=== PATIENT | female | born 1955 | race American Indian/Alaskan Native ===

== ENCOUNTER 2018-10-18 16:42 | Inpatient (IN) | payer OTHER ==
[2018-10-18 18:43] VITALS: BMI 34.3
[2018-10-18 20:36] VITALS: RESP 20
[2018-10-18] MEDS ORDERED: Bisacodyl 5mg EC Tab PO PRN (20:58)
[2018-10-18] MEDS ORDERED: guaiFENesin DM 100 mg-10 mg/5 ml UD PO PRN (20:58)
[2018-10-18] MEDS ORDERED: oxyCODONE 10 mg Immediate Release Tab PO PRN (21:13)
[2018-10-18] MEDS: oxyCODONE 10 mg Immediate Release Tab PO PRN (22:34)
[2018-10-18] MEDS: Ergocalciferol 50,000 Intl Units Cap PO SCH (22:46)
[2018-10-19] MEDS: Enoxaparin 40 mg Syringe SC SCH (09:04)
[2018-10-19] MEDS: Calcium-Vit D 250 mg-125 Units Tab UD PO SCH (09:04)
[2018-10-19] MEDS: oxyCODONE 10 mg Immediate Release Tab PO PRN (10:39)
--- NOTE | 2018-10-19 14:04 | CP.PCM.CON ---
History of Present Illness - History of Present Illness History of Present Illness: Dr Amezcua PMR consultation on Angel Byrne, born 1955 who has been admitted to [address] TCU following a left TKR at [facility]. X-ray revealed severe DJD. Post op stable. Pain is controlled 02/21. Only 1 BM in 6 days and she is usually very regular. Review of Systems - Constitutional Constitutional: absent: Anorexia, Chills, Daytime Sleepiness - EENT Eyes: Blurred Vision. absent: Change in Vision Ears: absent: Ear Discharge, Ear Pain Nose/Mouth/Throat: absent: Nasal Congestion, Nasal Discharge - Cardiovascular Cardiovascular: absent: Chest Pain, Chest Pain at Rest - Respiratory Respiratory: absent: Dyspnea, Hemoptysis - Gastrointestinal Gastrointestinal: Constipation - Integumentary Integumentary: absent: Bleeding Lesions - Neurological Neurological: absent: Abnormal Movements, Numbness, Radicular Pain, Tremor, Vertigo - Psychiatric Psychiatric: absent: Anxiety Past Patient History - Infectious Disease Hx of Infectious Diseases: None - Tetanus Immunizations Tetanus Immunization: Unknown - Past Medical History & Family History Past Medical History?: Yes - Past Social History Smoking Status: Light Smoker < 10 Cigarettes Daily Alcohol: None Drugs: Denies Home Situation {Lives}: Alone - CARDIAC Hx Cardiac Disorders: Yes Hx Hypertension: Yes - PULMONARY Hx Chronic Obstructive Pulmonary Disease (COPD): Yes - NEUROLOGICAL Hx Neurological Disorder: No - HEENT Hx HEENT Problems: No - RENAL Hx Chronic Kidney Disease: No - ENDOCRINE/METABOLIC Hx Endocrine Disorders: No - HEMATOLOGICAL/ONCOLOGICAL Hx Blood Disorders: Yes Hx Hepatitis C: Yes (January 2014, as per EMR, unknown to patient) - INTEGUMENTARY Hx Dermatological Problems: No - MUSCULOSKELETAL/RHEUMATOLOGICAL Hx Arthritis: Yes - GASTROINTESTINAL Hx Gastrointestinal Disorders: Yes Hx Bowel Surgery: Yes (POLYPECTOMY) - GENITOURINARY/GYNECOLOGICAL Hx Genitourinary Disorders: Yes Hx Reproductive Disorders: Yes Other/Comment: Uterine fibriods - PSYCHIATRIC Hx Substance Use: Yes (MARIJUANA LAST USE 2 DAYS AGO) - SURGICAL HISTORY Hx Surgeries: Yes Hx Arthroscopy: Yes (left knee) Hx Joint Replacement: Yes (AYO KNEE REPLACEMENT) Hx Orthopedic Surgery: Yes Other/Comment: Left knee arthroscopy . right knee torn cartilage . fibroids removed - ANESTHESIA Hx Anesthesia: Yes Hx Anesthesia Reactions: No Hx Malignant Hyperthermia: No Meds Allergies/Adverse Reactions: Allergies Allergy/AdvReac Type Severity Reaction Status Date / Time No Known Allergies Allergy Verified 10/18/18 16:44 - Medications Medications: Current Medications Acetaminophen (Tylenol 325mg Tab) 650 mg PO Q6 PRN PRN Reason: Fever >100.4 F Last Admin: 10/18/18 22:45 Dose: 650 mg Bisacodyl (Dulcolax) 10 mg PO HS PRN PRN Reason: Constipation Last Admin: 10/18/18 22:45 Dose: 10 mg Bisoprolol Fumarate (Zebeta) 5 mg PO DAILY [facility] Last Admin: 10/19/18 09:04 Dose: 5 mg Calcium/Vitamin D (Oscal-D 250 Mg-125 Units Tab) 1 tab PO DAILY [facility] Last Admin: 10/19/18 09:04 Dose: 1 tab Diazepam (Valium) 5 mg PO Q8 PRN PRN Reason: Muscle spasm Docusate Sodium (Colace) 100 mg PO BID [facility] Last Admin: 10/19/18 09:04 Dose: 100 mg Enoxaparin Sodium (Lovenox) 40 mg SC DAILY [facility]; Protocol Last Admin: 10/19/18 09:04 Dose: 40 mg Ergocalciferol (Drisdol 50,000 Intl Units Cap) 1 cap PO Q7D [facility] Last Admin: 10/18/18 22:46 Dose: 1 cap Guaifenesin/Dextromethorphan (Robitussin Dm) 5 ml PO Q4H PRN PRN Reason: Cough Hydrochlorothiazide (Microzide) 12.5 mg PO DAILY [facility] Last Admin: 10/19/18 09:04 Dose: 12.5 mg Lactulose (Enulose) 20 gm PO Q4 [facility] Ondansetron HCl (Zofran Tab) 4 mg PO Q6 PRN PRN Reason: Nausea/Vomiting Oxycodone HCl (Oxycodone Immediate Release Tab) 10 mg PO Q4H PRN PRN Reason: Pain, severe (8-10) Last Admin: 10/19/18 10:39 Dose: 10 mg Physical Exam - Constitutional Appears: Non-toxic, No Acute Distress - Head Exam Head Exam: ATRAUMATIC, NORMAL INSPECTION, NORMOCEPHALIC - Eye Exam Eye Exam: EOMI - ENT Exam ENT Exam: Mucous Membranes Moist - Respiratory Exam Respiratory Exam: NORMAL BREATHING PATTERN - Cardiovascular Exam Cardiovascular Exam: REGULAR RHYTHM - GI/Abdominal Exam GI & Abdominal Exam: Distended. absent: Firm - Extremities Exam Extremities exam: Negative for: full ROM (left knee immobilizer and wrap) - Neurological Exam Neurological exam: Alert, CN II-XII Intact, Oriented x3 - Psychiatric Exam Psychiatric exam: Normal Affect, Normal Mood - Skin Skin Exam: Warm Results - Vital Signs Recent Vital Signs: Last Vital Signs Temp 98.5 F 10/19/18 08:04 Pulse 73 10/19/18 10:30 Resp 20 10/19/18 08:04 BP 123/79 10/19/18 08:04 Pulse Ox 98 10/19/18 10:30 Assessment & Plan - Assessment and Plan (Free Text) Assessment: 63 year old female s/p left TKR PT/OT to continue to help increase functional independence Pain: controlled Vascular: no evidence of DVT on LMWH GI: + constipation. Will increase bowel regimen Patient continues to be an excellent TCU rehabilitation candidate and will have continued focused PT, OT and recreational therapy to help facilitate a safe and appropriate d/c plan
[2018-10-19] MEDS: oxyCODONE 5 mg Immediate Release Tab PO PRN (18:21)
[2018-10-20] MEDS: oxyCODONE 5 mg Immediate Release Tab PO PRN ×4 (00:27→20:52)
--- NOTE | 2018-10-20 01:24 | HP ---
HISTORY OF PRESENT ILLNESS: This is a 63-year-old female with history of hypertension, osteoarthritis, was admitted to Transitional Care Unit for deconditioning and physical therapy after having a left total knee replacement. The patient denied having chest pain, shortness of breath. The patient has been on DVT prophylaxis since she had the surgery. The patient was complaining of constipation. Other review of systems is negative. ALLERGIES: NO KNOWN ALLERGY. MEDICATIONS: Reviewed as per MAR and ordered. SOCIAL HISTORY: Denied history of smoking, EtOH or substance abuse. FAMILY HISTORY: Not contributory. PAST MEDICAL HISTORY: Hypertension, right knee surgery for torn ligament, osteoarthritis. PHYSICAL EXAMINATION: GENERAL: The patient is in bed, not in any cardiopulmonary distress. VITAL SIGNS: Blood pressure 155/62, temperature 98.4, respiratory rate 20 and pulse 81. HEENT: Pupils equal, reactive to light. Normal-appearing mucosa of the conjunctivae, oropharynx and nasal membrane mucosa. NECK: Supple. No JVD. No carotid bruit. No lymph node. No thyromegaly. CHEST AND LUNGS: Bilateral symmetrical expansion. Good air exchange. No rales, no rhonchi. CARDIOVASCULAR SYSTEM: PMI not localized. S1, S2. No additional sounds. ABDOMEN: Normoactive bowel sounds. No tenderness. No organomegaly. No masses. EXTREMITIES: No cyanosis, no clubbing, no edema. [employer]: Alert, awake, oriented x2. No neurological deficit could be appreciated. ASSESSMENT: Left total knee replacement, osteoarthritis, hypertension. PLAN: Resume the patient's home medications. DVT prophylaxis. We will give the patient lactulose every 4 hours until bowel movement. Physical therapy and occupational therapy. Radha Rios MD
[2018-10-20] MEDS: Enoxaparin 40 mg Syringe SC SCH (08:08)
[2018-10-20] MEDS: Calcium-Vit D 250 mg-125 Units Tab UD PO SCH (08:08)
[2018-10-20 09:28] LABS: BASO % 0.6 % (0.0-2.0); EOS # 0.2 K/uL (0.0-0.7); EOS % 2.2 % (0.0-4.0); HEMOGLOBIN 8.5 g/dL (12.0-16.0); LYMPH # 1.4 K/uL (1.0-4.3); LYMPH % 18.6 % (20.0-40.0); MEAN CELL VOLUME 98.7 fl (81.0-99.0); MEAN CORPUSCULAR HEMOGLOBIN 32.9 pg (27.0-31.0); MEAN CORPUSCULAR HGB CONC 33.4 g/dL (33.0-37.0); MEAN PLATELET VOLUME 8.8 fl (7.2-11.7); MONO # 1.2 K/uL (0.0-0.8); MONO % 14.9 % (0.0-10.0); NEUT # 4.9 K/uL (1.8-7.0); NEUT % 63.7 % (50.0-75.0); RBC 2.58 Mil/uL (3.80-5.20); RED CELL DISTRIBUTION WIDTH 14.5 % (11.5-14.5); WHITE BLOOD COUNT 7.7 K/uL (4.8-10.8)
[2018-10-20 09:32] LABS: ALB/GLOB RATIO 0.9 (1.0-2.1); ALBUMIN 3.2 g/dL (3.5-5.0); ALT/SGPT 22 U/L (9-52); AST/SGOT 28 U/L (14-36); BLOOD UREA NITROGEN 10 mg/dl (7-17); CALCIUM 8.6 mg/dL (8.4-10.2); GFR NON-AFRICAN AMERICAN > 60
--- NOTE | 2018-10-20 14:21 | CP.PCM.PN ---
Subjective - Date & Time of Evaluation Date of Evaluation: 10/20/18 Time of Evaluation: 14:20 - Subjective Subjective: Patient seen in the room had a BM happy and feels much better now pain is controlled minimal calf tenderness, able to move ankle well continue current care Objective - Vital Signs/Intake and Output Vital Signs (last 24 hours): Temp Pulse Resp BP Pulse Ox 98.9 F 78 20 147/75 97 10/20/18 08:06 10/20/18 09:15 10/20/18 08:06 10/20/18 09:15 10/20/18 09:15 - Medications Medications: Current Medications Acetaminophen (Tylenol 325mg Tab) 650 mg PO Q6 PRN PRN Reason: Fever >100.4 F Last Admin: 10/20/18 00:24 Dose: 650 mg Bisacodyl (Dulcolax) 10 mg PO HS PRN PRN Reason: Constipation Last Admin: 10/18/18 22:45 Dose: 10 mg Bisoprolol Fumarate (Zebeta) 5 mg PO DAILY [facility] Last Admin: 10/20/18 08:07 Dose: 5 mg Calcium/Vitamin D (Oscal-D 250 Mg-125 Units Tab) 1 tab PO DAILY [facility] Last Admin: 10/20/18 08:08 Dose: 1 tab Diazepam (Valium) 5 mg PO Q8 PRN PRN Reason: Muscle spasm Docusate Sodium (Colace) 100 mg PO BID [facility] Last Admin: 10/20/18 08:07 Dose: 100 mg Enoxaparin Sodium (Lovenox) 40 mg SC DAILY [facility]; Protocol Last Admin: 10/20/18 08:08 Dose: 40 mg Ergocalciferol (Drisdol 50,000 Intl Units Cap) 1 cap PO Q7D [facility] Last Admin: 10/18/18 22:46 Dose: 1 cap Guaifenesin/Dextromethorphan (Robitussin Dm) 5 ml PO Q4H PRN PRN Reason: Cough Hydrochlorothiazide (Microzide) 12.5 mg PO DAILY [facility] Last Admin: 10/20/18 08:08 Dose: 12.5 mg Ondansetron HCl (Zofran Tab) 4 mg PO Q6 PRN PRN Reason: Nausea/Vomiting Oxycodone HCl (Oxycodone Immediate Release Tab) 10 mg PO Q4H PRN PRN Reason: Pain, severe (8-10) Last Admin: 10/20/18 07:01 Dose: 10 mg - Labs Labs: 10/20/18 09:11 10/20/18 09:11
--- NOTE | 2018-10-20 15:08 | CP.PCM.PN ---
Subjective - Date & Time of Evaluation Date of Evaluation: 10/20/18 Time of Evaluation: 14:00 - Subjective Subjective: Patient states she is tired today. She says overall she is getting better, but she is very tired after physical therapy. Objective - Vital Signs/Intake and Output Vital Signs (last 24 hours): Temp Pulse Resp BP Pulse Ox 98.9 F 78 20 147/75 97 10/20/18 08:06 10/20/18 09:15 10/20/18 08:06 10/20/18 09:15 10/20/18 09:15 - Medications Medications: Current Medications Acetaminophen (Tylenol 325mg Tab) 650 mg PO Q6 PRN PRN Reason: Fever >100.4 F Last Admin: 10/20/18 00:24 Dose: 650 mg Bisacodyl (Dulcolax) 10 mg PO HS PRN PRN Reason: Constipation Last Admin: 10/18/18 22:45 Dose: 10 mg Bisoprolol Fumarate (Zebeta) 5 mg PO DAILY [facility] Last Admin: 10/20/18 08:07 Dose: 5 mg Calcium/Vitamin D (Oscal-D 250 Mg-125 Units Tab) 1 tab PO DAILY [facility] Last Admin: 10/20/18 08:08 Dose: 1 tab Diazepam (Valium) 5 mg PO Q8 PRN PRN Reason: Muscle spasm Docusate Sodium (Colace) 100 mg PO BID [facility] Last Admin: 10/20/18 08:07 Dose: 100 mg Enoxaparin Sodium (Lovenox) 40 mg SC DAILY [facility]; Protocol Last Admin: 10/20/18 08:08 Dose: 40 mg Ergocalciferol (Drisdol 50,000 Intl Units Cap) 1 cap PO Q7D [facility] Last Admin: 10/18/18 22:46 Dose: 1 cap Guaifenesin/Dextromethorphan (Robitussin Dm) 5 ml PO Q4H PRN PRN Reason: Cough Hydrochlorothiazide (Microzide) 12.5 mg PO DAILY [facility] Last Admin: 10/20/18 08:08 Dose: 12.5 mg Ondansetron HCl (Zofran Tab) 4 mg PO Q6 PRN PRN Reason: Nausea/Vomiting Oxycodone HCl (Oxycodone Immediate Release Tab) 10 mg PO Q4H PRN PRN Reason: Pain, severe (8-10) Last Admin: 10/20/18 07:01 Dose: 10 mg - Labs Labs: 10/20/18 09:11 10/20/18 09:11 - Extremities Exam Additional comments: left knee: moderate swelling and ecchymosis to left knee. Incision intact. Calves soft NT neg homans, +ROM ankle/toes, sensation intact +DP/PT pulses Assessment and Plan (1) Status post total left knee replacement Assessment & Plan: cont PT/OT cont VTE proph labs reviewed cont knee immob d/w Dr. sinha, agrees with above Status: Acute
[2018-10-20] MEDS ORDERED: Potassium Chloride 20 mEq ER Tab PO ONE (21:00)
[2018-10-21] MEDS: Calcium-Vit D 250 mg-125 Units Tab UD PO SCH (08:40)
[2018-10-21] MEDS: Enoxaparin 40 mg Syringe SC SCH (08:40)
[2018-10-21] MEDS: oxyCODONE 5 mg Immediate Release Tab PO PRN ×3 (08:41→21:20)
--- NOTE | 2018-10-22 04:15 | PN ---
DATE: 10/21/2018 DAILY PROGRESS NOTE SUBJECTIVE: The patient is seen today, 10/21/2018. She is not in any cardiopulmonary distress. The patient moves bowel. She has low-grade fever. She is encouraged to use the spirometry. PHYSICAL EXAMINATION: VITAL SIGNS: Blood pressure is 125/75, temperature 98.9, respiratory rate 20, and pulse 85. HEENT: Pupils equal and reactive to light. Normal-appearing mucosa of the conjunctivae, oropharynx, and nasal membrane mucosa. NECK: Supple. No JVD. No carotid bruits. No lymph node. No thyromegaly. CHEST AND LUNGS: Bilateral symmetrical expansion. Good air exchange. No rales. No rhonchi. CARDIOVASCULAR SYSTEM: PMI not localized. S1 and S2. No additional sounds. ABDOMEN: Normoactive bowel sounds. No tenderness. No organomegaly. No masses. EXTREMITIES: No cyanosis. No clubbing. No edema. CENTRAL NERVOUS SYSTEM: Alert, awake, and oriented x2. No neurological deficit could be appreciated. ASSESSMENT: 1. Left total knee replacement. 2. Hypertension. 3. Osteoarthritis. PLAN: Continue current medications and pain management as well as DVT prophylaxis. Radha Rios MD
[2018-10-22] MEDS: Enoxaparin 40 mg Syringe SC SCH (08:41)
[2018-10-22] MEDS: Calcium-Vit D 250 mg-125 Units Tab UD PO SCH (08:42)
--- NOTE | 2018-10-22 09:12 | CP.PCM.PN ---
Subjective - Date & Time of Evaluation Date of Evaluation: 10/22/18 Time of Evaluation: 09:10 - Subjective Subjective: Patient states that pain is controlled. Denies CP/SOB/dizziness/numbness/tingling Objective - Vital Signs/Intake and Output Vital Signs (last 24 hours): Temp Pulse Resp BP Pulse Ox 98.4 F 66 20 110/68 99 10/22/18 08:10 10/22/18 08:10 10/22/18 08:10 10/22/18 08:10 10/22/18 08:10 - Medications Medications: Current Medications Acetaminophen (Tylenol 325mg Tab) 650 mg PO Q6 PRN PRN Reason: Fever >100.4 F Last Admin: 10/22/18 02:49 Dose: 650 mg Bisacodyl (Dulcolax) 10 mg PO HS PRN PRN Reason: Constipation Last Admin: 10/18/18 22:45 Dose: 10 mg Bisoprolol Fumarate (Zebeta) 5 mg PO DAILY [facility] Last Admin: 10/22/18 08:42 Dose: 5 mg Calcium/Vitamin D (Oscal-D 250 Mg-125 Units Tab) 1 tab PO DAILY [facility] Last Admin: 10/22/18 08:42 Dose: 1 tab Docusate Sodium (Colace) 100 mg PO BID [facility] Last Admin: 10/22/18 08:42 Dose: 100 mg Enoxaparin Sodium (Lovenox) 40 mg SC DAILY [facility]; Protocol Last Admin: 10/22/18 08:41 Dose: 40 mg Ergocalciferol (Drisdol 50,000 Intl Units Cap) 1 cap PO Q7D [facility] Last Admin: 10/18/18 22:46 Dose: 1 cap Guaifenesin/Dextromethorphan (Robitussin Dm) 5 ml PO Q4H PRN PRN Reason: Cough Hydrochlorothiazide (Microzide) 12.5 mg PO DAILY [facility] Last Admin: 10/22/18 08:42 Dose: 12.5 mg Ondansetron HCl (Zofran Tab) 4 mg PO Q6 PRN PRN Reason: Nausea/Vomiting Oxycodone HCl (Oxycodone Immediate Release Tab) 10 mg PO Q4H PRN PRN Reason: Pain, severe (8-10) Last Admin: 10/21/18 21:20 Dose: 10 mg - Labs Labs: 10/20/18 09:11 10/20/18 09:11 - Extremities Exam Additional comments: Left knee: +ROM ankle/toes, sensation intact, still moderate swelling/ecchymosis, incision intact, dry, no erythema, calves sof t NT neg homans +DP/PT Pulses Assessment and Plan (1) Status post total left knee replacement Assessment & Plan: s/p TKR cont PT/OT VTE proph d/w Dr. Antoine, agrees with above ortho stable Status: Acute
--- NOTE | 2018-10-22 17:07 | CP.PCM.PN ---
Subjective - Date & Time of Evaluation Date of Evaluation: 10/22/18 Time of Evaluation: 17:06 - Subjective Subjective: Patient seen in the room doing ok ROM is short of goal at this point so will continue with the CPM working hard in therapies to increase function and ROM had a BM denies significant pain Objective - Vital Signs/Intake and Output Vital Signs (last 24 hours): Temp Pulse Resp BP Pulse Ox 98.4 F 66 20 110/68 99 10/22/18 08:10 10/22/18 08:10 10/22/18 08:10 10/22/18 08:10 10/22/18 08:10 - Medications Medications: Current Medications Acetaminophen (Tylenol 325mg Tab) 650 mg PO Q6 PRN PRN Reason: Fever >100.4 F Last Admin: 10/22/18 02:49 Dose: 650 mg Bisacodyl (Dulcolax) 10 mg PO HS PRN PRN Reason: Constipation Last Admin: 10/18/18 22:45 Dose: 10 mg Bisoprolol Fumarate (Zebeta) 5 mg PO DAILY [facility] Last Admin: 10/22/18 08:42 Dose: 5 mg Calcium/Vitamin D (Oscal-D 250 Mg-125 Units Tab) 1 tab PO DAILY [facility] Last Admin: 10/22/18 08:42 Dose: 1 tab Docusate Sodium (Colace) 100 mg PO BID [facility] Last Admin: 10/22/18 16:37 Dose: 100 mg Enoxaparin Sodium (Lovenox) 40 mg SC DAILY [facility]; Protocol Last Admin: 10/22/18 08:41 Dose: 40 mg Ergocalciferol (Drisdol 50,000 Intl Units Cap) 1 cap PO Q7D [facility] Last Admin: 10/18/18 22:46 Dose: 1 cap Guaifenesin/Dextromethorphan (Robitussin Dm) 5 ml PO Q4H PRN PRN Reason: Cough Hydrochlorothiazide (Microzide) 12.5 mg PO DAILY [facility] Last Admin: 10/22/18 08:42 Dose: 12.5 mg Ondansetron HCl (Zofran Tab) 4 mg PO Q6 PRN PRN Reason: Nausea/Vomiting Oxycodone HCl (Oxycodone Immediate Release Tab) 10 mg PO Q4H PRN PRN Reason: Pain, severe (8-10) Last Admin: 10/21/18 21:20 Dose: 10 mg - Labs Labs: 10/20/18 09:11 10/20/18 09:11
[2018-10-22] MEDS: oxyCODONE 5 mg Immediate Release Tab PO PRN (18:26)
[2018-10-23] MEDS: oxyCODONE 5 mg Immediate Release Tab PO PRN ×3 (08:41→22:42)
[2018-10-23] MEDS: Enoxaparin 40 mg Syringe SC SCH (08:42)
[2018-10-23] MEDS: Calcium-Vit D 250 mg-125 Units Tab UD PO SCH (08:43)
[2018-10-24] MEDS: Enoxaparin 40 mg Syringe SC SCH (08:45)
[2018-10-24] MEDS: Calcium-Vit D 250 mg-125 Units Tab UD PO SCH (08:46)
[2018-10-24] MEDS: oxyCODONE 5 mg Immediate Release Tab PO PRN ×2 (12:36→22:29)
--- NOTE | 2018-10-24 22:19 | PN ---
DATE: 10/23/2018 LATE ENTRY PROGRESS NOTE SUBJECTIVE: The patient was seen on 10/23/2018. She had two bowel movements, and her pain is controlled. Denied any shortness of breath. PHYSICAL EXAMINATION: VITAL SIGNS: Blood pressure is 117/75, temperature 97.4, respiratory rate 20, and pulse 70. HEENT: Pupils are equal and reactive to light. Normal-appearing mucosa of the conjunctivae, oropharynx, and nasal membrane mucosa. NECK: Supple. No JVD. No carotid bruits. No lymph node. No thyromegaly. CHEST AND LUNGS: Bilateral symmetrical expansion. Good air exchange. No rales. No rhonchi. CARDIOVASCULAR SYSTEM: PMI not localized. S1 and S2. No additional sounds. ABDOMEN: Normoactive bowel sounds. No tenderness. No organomegaly. No masses. EXTREMITIES: No cyanosis. No clubbing. No edema. CENTRAL NERVOUS SYSTEM: Alert, awake, and oriented x2. No neurological deficit could be appreciated. ASSESSMENT: 1. Status post left total knee replacement. 2. Hypertension. 3. Osteoarthritis. PLAN: Continue current medications. Pain management. Stool softeners. Physical therapy and occupation therapy. Radha Rios MD
--- NOTE | 2018-10-25 08:37 | CP.PCM.PN ---
Subjective - Date & Time of Evaluation Date of Evaluation: 10/25/18 Time of Evaluation: 07:30 - Subjective Subjective: Patient seen and examined at bedside comfortable. Tolerating PT well, able to ambulate and transfer using RW. No acute events over weekend. Denies SP/SOB/N/fever/dizziness. Objective - Vital Signs/Intake and Output Vital Signs (last 24 hours): Temp Pulse Resp BP Pulse Ox 97.7 F 73 20 109/65 98 10/25/18 08:07 10/25/18 08:07 10/25/18 08:07 10/25/18 08:07 10/25/18 08:07 - Medications Medications: Current Medications Acetaminophen (Tylenol 325mg Tab) 650 mg PO Q6 PRN PRN Reason: Fever >100.4 F Last Admin: 10/22/18 02:49 Dose: 650 mg Ascorbic Acid (Vitamin C 500 Mg Tab) 500 mg PO DAILY [facility] Last Admin: 10/24/18 08:46 Dose: 500 mg Bisacodyl (Dulcolax) 10 mg PO HS PRN PRN Reason: Constipation Last Admin: 10/18/18 22:45 Dose: 10 mg Bisoprolol Fumarate (Zebeta) 5 mg PO DAILY [facility] Last Admin: 10/24/18 10:18 Dose: 5 mg Calcium/Vitamin D (Oscal-D 250 Mg-125 Units Tab) 1 tab PO DAILY [facility] Last Admin: 10/24/18 08:46 Dose: 1 tab Docusate Sodium (Colace) 100 mg PO BID [facility] Last Admin: 10/24/18 17:11 Dose: 100 mg Enoxaparin Sodium (Lovenox) 40 mg SC DAILY [facility]; Protocol Last Admin: 10/24/18 08:45 Dose: 40 mg Ergocalciferol (Drisdol 50,000 Intl Units Cap) 1 cap PO Q7D [facility] Last Admin: 10/18/18 22:46 Dose: 1 cap Ferrous Sulfate (Feosol) 325 mg PO BID [facility] Last Admin: 10/24/18 17:12 Dose: 325 mg Guaifenesin/Dextromethorphan (Robitussin Dm) 5 ml PO Q4H PRN PRN Reason: Cough Hydrochlorothiazide (Microzide) 12.5 mg PO DAILY [facility] Last Admin: 10/24/18 08:45 Dose: 12.5 mg Ondansetron HCl (Zofran Tab) 4 mg PO Q6 PRN PRN Reason: Nausea/Vomiting Oxycodone HCl (Oxycodone Immediate Release Tab) 10 mg PO Q4H PRN PRN Reason: Pain, severe (8-10) Last Admin: 10/24/18 22:29 Dose: 10 mg - Labs Labs: 10/20/18 09:11 10/20/18 09:11 - Extremities Exam Additional comments: L knee: Knee imm in place Dressings CDI ROM: 0-80deg sensation intact SP/DP/TN motor intact EHL/FHL/TA/G pedal pulses intact calves soft NT b/l Assessment and Plan (1) Status post total left knee replacement Assessment & Plan: POD#12 s/p L TKA -PT/OT -DVT ppx -Knee imm and CPM as per order -orthopedically stable -above d/w Dr. Moreno in agreement Status: Acute
[2018-10-25] MEDS: Calcium-Vit D 250 mg-125 Units Tab UD PO SCH (08:44)
[2018-10-25] MEDS: Enoxaparin 40 mg Syringe SC SCH (08:44)
[2018-10-25] MEDS: oxyCODONE 5 mg Immediate Release Tab PO PRN ×2 (08:45→17:15)
--- NOTE | 2018-10-25 16:52 | CP.PCM.PN ---
Subjective - Date & Time of Evaluation Date of Evaluation: 10/25/18 Time of Evaluation: 16:51 - Subjective Subjective: patient seen in the room slow but steady progression in ROM having a bowel movement more regularly denies CP or fever improved appetite continue current care remains well motivated Objective - Vital Signs/Intake and Output Vital Signs (last 24 hours): Temp Pulse Resp BP Pulse Ox 99.3 F 70 20 117/66 99 10/25/18 15:42 10/25/18 15:42 10/25/18 15:42 10/25/18 15:42 10/25/18 15:42 - Medications Medications: Current Medications Acetaminophen (Tylenol 325mg Tab) 650 mg PO Q6 PRN PRN Reason: Fever >100.4 F Last Admin: 10/22/18 02:49 Dose: 650 mg Ascorbic Acid (Vitamin C 500 Mg Tab) 500 mg PO DAILY [facility] Last Admin: 10/25/18 08:44 Dose: 500 mg Bisacodyl (Dulcolax) 10 mg PO HS PRN PRN Reason: Constipation Last Admin: 10/18/18 22:45 Dose: 10 mg Bisoprolol Fumarate (Zebeta) 5 mg PO DAILY [facility] Last Admin: 10/25/18 08:45 Dose: 5 mg Calcium/Vitamin D (Oscal-D 250 Mg-125 Units Tab) 1 tab PO DAILY [facility] Last Admin: 10/25/18 08:44 Dose: 1 tab Docusate Sodium (Colace) 100 mg PO BID [facility] Last Admin: 10/25/18 08:44 Dose: 100 mg Enoxaparin Sodium (Lovenox) 40 mg SC DAILY [facility]; Protocol Last Admin: 10/25/18 08:44 Dose: 40 mg Ergocalciferol (Drisdol 50,000 Intl Units Cap) 1 cap PO Q7D [facility] Last Admin: 10/18/18 22:46 Dose: 1 cap Ferrous Sulfate (Feosol) 325 mg PO BID [facility] Last Admin: 10/25/18 08:44 Dose: 325 mg Guaifenesin/Dextromethorphan (Robitussin Dm) 5 ml PO Q4H PRN PRN Reason: Cough Hydrochlorothiazide (Microzide) 12.5 mg PO DAILY [facility] Last Admin: 10/25/18 08:44 Dose: 12.5 mg Ondansetron HCl (Zofran Tab) 4 mg PO Q6 PRN PRN Reason: Nausea/Vomiting Oxycodone HCl (Oxycodone Immediate Release Tab) 10 mg PO Q4H PRN PRN Reason: Pain, severe (8-10) Last Admin: 10/25/18 08:45 Dose: 10 mg - Labs Labs: 10/20/18 09:11 10/20/18 09:11
[2018-10-25] MEDS: Ergocalciferol 50,000 Intl Units Cap PO SCH (20:21)
[2018-10-26] MEDS: Enoxaparin 40 mg Syringe SC SCH (08:49)
[2018-10-26] MEDS: Calcium-Vit D 250 mg-125 Units Tab UD PO SCH (08:51)
[2018-10-26] MEDS: oxyCODONE 5 mg Immediate Release Tab PO PRN ×2 (13:06→18:31)
--- NOTE | 2018-10-26 14:14 | CP.PCM.PN ---
Subjective - Date & Time of Evaluation Date of Evaluation: 10/26/18 Time of Evaluation: 14:13 - Subjective Subjective: patient seen in the room doing ok in [facility] now. She accomplished stairs today and was initially quite hesitant but did fairly well appreciative of staff continue current care Objective - Vital Signs/Intake and Output Vital Signs (last 24 hours): Temp Pulse Resp BP Pulse Ox 98.4 F 68 20 124/72 96 10/26/18 07:45 10/26/18 07:45 10/26/18 07:45 10/26/18 07:45 10/26/18 07:45 - Medications Medications: Current Medications Acetaminophen (Tylenol 325mg Tab) 650 mg PO Q6 PRN PRN Reason: Fever >100.4 F Last Admin: 10/22/18 02:49 Dose: 650 mg Ascorbic Acid (Vitamin C 500 Mg Tab) 500 mg PO DAILY [facility] Last Admin: 10/26/18 08:50 Dose: 500 mg Bisacodyl (Dulcolax) 10 mg PO HS PRN PRN Reason: Constipation Last Admin: 10/18/18 22:45 Dose: 10 mg Bisoprolol Fumarate (Zebeta) 5 mg PO DAILY [facility] Last Admin: 10/26/18 08:49 Dose: 5 mg Calcium/Vitamin D (Oscal-D 250 Mg-125 Units Tab) 1 tab PO DAILY [facility] Last Admin: 10/26/18 08:51 Dose: 1 tab Docusate Sodium (Colace) 100 mg PO BID [facility] Last Admin: 10/26/18 08:50 Dose: 100 mg Enoxaparin Sodium (Lovenox) 40 mg SC DAILY [facility]; Protocol Last Admin: 10/26/18 08:49 Dose: 40 mg Ergocalciferol (Drisdol 50,000 Intl Units Cap) 1 cap PO Q7D [facility] Last Admin: 10/25/18 20:21 Dose: 1 cap Ferrous Sulfate (Feosol) 325 mg PO BID [facility] Last Admin: 10/26/18 08:49 Dose: 325 mg Guaifenesin/Dextromethorphan (Robitussin Dm) 5 ml PO Q4H PRN PRN Reason: Cough Hydrochlorothiazide (Microzide) 12.5 mg PO DAILY [facility] Last Admin: 10/26/18 08:49 Dose: 12.5 mg Ondansetron HCl (Zofran Tab) 4 mg PO Q6 PRN PRN Reason: Nausea/Vomiting Oxycodone HCl (Oxycodone Immediate Release Tab) 10 mg PO Q4H PRN PRN Reason: Pain, severe (8-10) Last Admin: 10/26/18 13:06 Dose: 10 mg - Labs Labs: 10/20/18 09:11 10/20/18 09:11
--- NOTE | 2018-10-26 23:55 | PN ---
DATE: 10/25/2018 SUBJECTIVE: The patient was seen on 10/25/2018. She was not in any cardiopulmonary distress. PHYSICAL EXAMINATION: VITAL SIGNS: Blood pressure was 117/66, temperature 99.3, respiratory rate 20 and pulse 70. HEENT: Pupils equal, reactive to light. Normal-appearing mucosa of the conjunctivae, oropharynx and nasal membrane mucosa. NECK: Supple. No JVD. No carotid bruit. No lymph node. No thyromegaly. CHEST AND LUNGS: Bilateral symmetrical expansion. Good air exchange. No rales, no rhonchi. CARDIOVASCULAR SYSTEM: PMI not localized. S1, S2. No additional sounds. ABDOMEN: Normoactive bowel sounds. No tenderness. No organomegaly. No masses. EXTREMITIES: No cyanosis, no clubbing, no edema. POLE MAKER: Alert, awake, oriented x3. No neurological deficit could be appreciated. ASSESSMENT: Left total knee replacement, osteoarthritis, hypertension. PLAN: Continue DVT prophylaxis, pain management and stool softeners. We added ferrous sulfate for anemia of acute blood loss. Radha Rios MD
[2018-10-27] MEDS: Calcium-Vit D 250 mg-125 Units Tab UD PO SCH (09:31)
[2018-10-27] MEDS: oxyCODONE 10 mg Immediate Release Tab PO PRN ×3 (10:15→22:15)
--- NOTE | 2018-10-27 10:18 | CP.PCM.PN ---
Subjective - Date & Time of Evaluation Date of Evaluation: 10/27/18 Time of Evaluation: 08:00 - Subjective Subjective: Patient seen and examined at bedside comfortable. Pain continues to improve and is doing very well with PT. No other complaints. Objective - Vital Signs/Intake and Output Vital Signs (last 24 hours): Temp Pulse Resp BP Pulse Ox 98.5 F 73 20 118/72 98 10/27/18 08:24 10/27/18 08:24 10/27/18 08:24 10/27/18 08:24 10/27/18 08:24 - Medications Medications: Current Medications Acetaminophen (Tylenol 325mg Tab) 650 mg PO Q6 PRN PRN Reason: Fever >100.4 F Last Admin: 10/22/18 02:49 Dose: 650 mg Ascorbic Acid (Vitamin C 500 Mg Tab) 500 mg PO DAILY [facility] Last Admin: 10/27/18 09:31 Dose: 500 mg Bisacodyl (Dulcolax) 10 mg PO HS PRN PRN Reason: Constipation Last Admin: 10/18/18 22:45 Dose: 10 mg Bisoprolol Fumarate (Zebeta) 5 mg PO DAILY [facility] Last Admin: 10/27/18 09:31 Dose: 5 mg Calcium/Vitamin D (Oscal-D 250 Mg-125 Units Tab) 1 tab PO DAILY [facility] Last Admin: 10/27/18 09:31 Dose: 1 tab Docusate Sodium (Colace) 100 mg PO BID [facility] Last Admin: 10/27/18 09:30 Dose: 100 mg Enoxaparin Sodium (Lovenox) 40 mg SC DAILY [facility]; Protocol Ergocalciferol (Drisdol 50,000 Intl Units Cap) 1 cap PO Q7D [facility] Last Admin: 10/25/18 20:21 Dose: 1 cap Ferrous Sulfate (Feosol) 325 mg PO BID [facility] Last Admin: 10/27/18 09:35 Dose: 325 mg Guaifenesin/Dextromethorphan (Robitussin Dm) 5 ml PO Q4H PRN PRN Reason: Cough Hydrochlorothiazide (Microzide) 12.5 mg PO DAILY [facility] Last Admin: 10/27/18 09:31 Dose: 12.5 mg Ondansetron HCl (Zofran Tab) 4 mg PO Q6 PRN PRN Reason: Nausea/Vomiting Oxycodone HCl (Oxycodone Immediate Release Tab) 10 mg PO Q4 PRN PRN Reason: Pain, severe (8-10) Last Admin: 10/27/18 10:15 Dose: 10 mg - Labs Labs: 10/20/18 09:11 10/20/18 09:11 - Extremities Exam Additional comments: L knee: Dressings CDI sensation intact SP/DP/TN motor intact EHL/FHL/TA/G pedal pulses intact calves soft NT b/l Assessment and Plan (1) Status post total left knee replacement Assessment & Plan: POD#14 s/p L TKA -PT/OT -DVT ppx -Knee imm and CPM as per order -orthopedically stable -above d/w Dr. Moreno in agreement Status: Acute
[2018-10-27 11:56] LABS: HEMOGLOBIN 9.3 g/dL (12.0-16.0); MEAN CELL VOLUME 100.4 fl (81.0-99.0); MEAN CORPUSCULAR HEMOGLOBIN 33.4 pg (27.0-31.0); MEAN CORPUSCULAR HGB CONC 33.3 g/dL (33.0-37.0); RBC 2.78 Mil/uL (3.80-5.20); RED CELL DISTRIBUTION WIDTH 15.2 % (11.5-14.5); WHITE BLOOD COUNT 7.7 K/uL (4.8-10.8)
[2018-10-27 12:15] LABS: BLOOD UREA NITROGEN 14 mg/dl (7-17); CALCIUM 9.1 mg/dL (8.4-10.2); GFR NON-AFRICAN AMERICAN > 60
[2018-10-27] MEDS: Enoxaparin 40 mg Syringe SC SCH (17:15)
--- NOTE | 2018-10-27 18:16 | CP.PCM.PN ---
Subjective - Date & Time of Evaluation Date of Evaluation: 10/27/18 Time of Evaluation: 18:15 - Subjective Subjective: Patient seen in the room in good spirits I did some ROM and fairly limited knee flexion at this point POD #14 I let her know that she needs to continue to push herself with ROM work she understands Objective - Vital Signs/Intake and Output Vital Signs (last 24 hours): Temp Pulse Resp BP Pulse Ox 98.9 F 78 20 122/76 98 10/27/18 17:22 10/27/18 17:22 10/27/18 17:22 10/27/18 17:22 10/27/18 17:22 - Medications Medications: Current Medications Acetaminophen (Tylenol 325mg Tab) 650 mg PO Q6 PRN PRN Reason: Fever >100.4 F Last Admin: 10/22/18 02:49 Dose: 650 mg Ascorbic Acid (Vitamin C 500 Mg Tab) 500 mg PO DAILY [facility] Last Admin: 10/27/18 09:31 Dose: 500 mg Bisacodyl (Dulcolax) 10 mg PO HS PRN PRN Reason: Constipation Last Admin: 10/18/18 22:45 Dose: 10 mg Bisoprolol Fumarate (Zebeta) 5 mg PO DAILY [facility] Last Admin: 10/27/18 09:31 Dose: 5 mg Calcium/Vitamin D (Oscal-D 250 Mg-125 Units Tab) 1 tab PO DAILY [facility] Last Admin: 10/27/18 09:31 Dose: 1 tab Docusate Sodium (Colace) 100 mg PO BID [facility] Last Admin: 10/27/18 17:15 Dose: 100 mg Enoxaparin Sodium (Lovenox) 40 mg SC DAILY [facility]; Protocol Last Admin: 10/27/18 17:15 Dose: 40 mg Ergocalciferol (Drisdol 50,000 Intl Units Cap) 1 cap PO Q7D [facility] Last Admin: 10/25/18 20:21 Dose: 1 cap Ferrous Sulfate (Feosol) 325 mg PO BID [facility] Last Admin: 10/27/18 17:15 Dose: 325 mg Guaifenesin/Dextromethorphan (Robitussin Dm) 5 ml PO Q4H PRN PRN Reason: Cough Hydrochlorothiazide (Microzide) 12.5 mg PO DAILY [facility] Last Admin: 10/27/18 09:31 Dose: 12.5 mg Ondansetron HCl (Zofran Tab) 4 mg PO Q6 PRN PRN Reason: Nausea/Vomiting Oxycodone HCl (Oxycodone Immediate Release Tab) 10 mg PO Q4 PRN PRN Reason: Pain, severe (8-10) Last Admin: 10/27/18 17:22 Dose: 10 mg - Labs Labs: 10/27/18 11:46 10/27/18 11:46
--- NOTE | 2018-10-28 08:09 | PN ---
DATE: 10/27/2018 SUBJECTIVE: The patient was seen on 10/27/2018. During physical therapy, the patient is cooperative to both physical therapy and occupational therapy. PHYSICAL EXAMINATION: VITAL SIGNS: Blood pressure was 118/72, temperature 98.5, respiratory rate 20, and pulse 73. HEENT: Pupils equal, reactive to light. Normal-appearing mucosa of the conjunctivae, oropharynx and nasal membrane mucosa. NECK: Supple. No JVD. No carotid bruit. No lymph node. No thyromegaly. CHEST AND LUNGS: Bilateral symmetrical expansion. Good air exchange. No rales, no rhonchi. CARDIOVASCULAR SYSTEM: PMI not localized. S1, S2. No additional sounds. ABDOMEN: Normoactive bowel sounds. No tenderness. No organomegaly. No masses. EXTREMITIES: No cyanosis, no clubbing, no edema. FOOD AIDE: Alert, awake, oriented x3. No neurological deficit could be appreciated. ASSESSMENT: Left total knee replacement, hypertension, osteoarthritis, anemia of acute blood loss. PLAN: Continue iron supplement and check blood work and continue physical therapy and occupational therapy with deep venous thrombosis prophylaxis. Radha Rios MD
[2018-10-28] MEDS: Enoxaparin 40 mg Syringe SC SCH (08:49)
[2018-10-28] MEDS: oxyCODONE 10 mg Immediate Release Tab PO PRN ×2 (08:49→16:51)
[2018-10-28] MEDS: Calcium-Vit D 250 mg-125 Units Tab UD PO SCH (08:50)
[2018-10-29] MEDS: oxyCODONE 10 mg Immediate Release Tab PO PRN ×2 (03:00→17:43)
[2018-10-29] MEDS: Calcium-Vit D 250 mg-125 Units Tab UD PO SCH (08:24)
[2018-10-29] MEDS: Enoxaparin 40 mg Syringe SC SCH (08:25)
--- NOTE | 2018-10-29 09:20 | CP.PCM.PN ---
Subjective - Date & Time of Evaluation Date of Evaluation: 10/29/18 Time of Evaluation: 09:16 - Subjective Subjective: Patient states she is doing well with PT, ready to go home. No new complaints. Pain controlled. Objective - Vital Signs/Intake and Output Vital Signs (last 24 hours): Temp Pulse Resp BP Pulse Ox 98.6 F 71 20 113/70 96 10/29/18 08:14 10/29/18 08:14 10/29/18 08:14 10/29/18 08:14 10/29/18 08:14 - Medications Medications: Current Medications Acetaminophen (Tylenol 325mg Tab) 650 mg PO Q6 PRN PRN Reason: Fever >100.4 F Last Admin: 10/22/18 02:49 Dose: 650 mg Ascorbic Acid (Vitamin C 500 Mg Tab) 500 mg PO DAILY [facility] Last Admin: 10/29/18 08:23 Dose: 500 mg Bisacodyl (Dulcolax) 10 mg PO HS PRN PRN Reason: Constipation Last Admin: 10/18/18 22:45 Dose: 10 mg Bisoprolol Fumarate (Zebeta) 5 mg PO DAILY [facility] Last Admin: 10/29/18 08:24 Dose: 5 mg Calcium/Vitamin D (Oscal-D 250 Mg-125 Units Tab) 1 tab PO DAILY [facility] Last Admin: 10/29/18 08:24 Dose: 1 tab Docusate Sodium (Colace) 100 mg PO BID [facility] Last Admin: 10/29/18 08:24 Dose: 100 mg Enoxaparin Sodium (Lovenox) 40 mg SC DAILY [facility]; Protocol Last Admin: 10/29/18 08:25 Dose: 40 mg Ergocalciferol (Drisdol 50,000 Intl Units Cap) 1 cap PO Q7D [facility] Last Admin: 10/25/18 20:21 Dose: 1 cap Ferrous Sulfate (Feosol) 325 mg PO BID [facility] Last Admin: 10/29/18 08:23 Dose: 325 mg Guaifenesin/Dextromethorphan (Robitussin Dm) 5 ml PO Q4H PRN PRN Reason: Cough Hydrochlorothiazide (Microzide) 12.5 mg PO DAILY [facility] Last Admin: 10/29/18 08:23 Dose: 12.5 mg Ondansetron HCl (Zofran Tab) 4 mg PO Q6 PRN PRN Reason: Nausea/Vomiting Oxycodone HCl (Oxycodone Immediate Release Tab) 10 mg PO Q4 PRN PRN Reason: Pain, severe (8-10) Last Admin: 10/29/18 03:00 Dose: 10 mg - Labs Labs: 10/27/18 11:46 10/27/18 11:46 - Extremities Exam Additional comments: Left knee: incision intact, dry, no erythema, ecchymosis improving. +ROM ankle/toes, sensation intact +DP/PT pulses calves soft NT neg homans Assessment and Plan (1) Status post total left knee replacement Assessment & Plan: for d/c home today will start outpatient PT upon discharge [facility], for f/u next with Dr. Micky Tirado patient encouraged to remove knee immobilizer during day for ROM at home when not ambulating cont lovenox (patient instructed on injection, states she has medicaton at home already) d/w Dr. Moreno, agrees with above Status: Acute
[2018-10-29 19:35] VITALS: BP 128/71; PULSE 72; TEMP 99.1; O2SAT 97
--- NOTE | 2018-10-31 03:10 | DS ---
REASON FOR ADMISSION: This is a 63-year-old female with history of multiple medical problems, who was admitted to Transitional Care Unit post left total knee replacement. COURSE OF HOSPITALIZATION: The patient was admitted to medical floor, and she was started on physical therapy and occupational therapy. The patient was continued on pain management. The patient also was continued on DVT prophylaxis. The patient was cooperative to both physical therapy and occupational therapy. It is noted during the patient's stay that hemoglobin dropped to 8.5 and hematocrit 25.5. The patient was started on iron supplement, and hemoglobin went up to 9.3 and hematocrit 27.9. The patient was discharged home in a stable condition, to continue following up with her primary care physician, Dr. Healy; and orthopedic doctor, Dr. Moreno. FINAL DIAGNOSES: 1. Left total knee replacement. 2. Osteoarthritis. 3. Hypertension. 4. Anemia of acute blood loss. [facility] MD Gabrile
== END 2018-10-29 22:00 | disposition home or self-care (01) | DRG 560 ==
LOC: H.TCU 17:06
PROVIDERS: ADMIT Internal Medicine; ATTEND Internal Medicine
PROC: F07Z9FZ Gait Training/Functional Ambulation Treatment using Assistive, Adaptive, Supportive or Protective Equipment (ICD-10-PCS; principal; 2018-10-18)
PROC: F07L6GZ Therapeutic Exercise Treatment of Musculoskeletal System - Lower Back / Lower Extremity using Aerobic Endurance and Conditioning Equipment (ICD-10-PCS; 2018-10-18)
PROC: F07L7ZZ Manual Therapy Techniques Treatment of Musculoskeletal System - Lower Back / Lower Extremity (ICD-10-PCS; 2018-10-18)
PROC: F08Z1FZ Dressing Techniques Treatment using Assistive, Adaptive, Supportive or Protective Equipment (ICD-10-PCS; 2018-10-18)
PROC: F08Z0FZ Bathing/Showering Techniques Treatment using Assistive, Adaptive, Supportive or Protective Equipment (ICD-10-PCS; 2018-10-18)
PROC: F08Z4FZ Home Management Treatment using Assistive, Adaptive, Supportive or Protective Equipment (ICD-10-PCS; 2018-10-18)
DX: Z47.1 Aftercare following joint replacement surgery (principal); D62 Acute posthemorrhagic anemia; Z96.652 Presence of left artificial knee joint; I10 Essential (primary) hypertension; K59.00 Constipation, unspecified; J44.9 Chronic obstructive pulmonary disease, unspecified; F17.210 Nicotine dependence, cigarettes, uncomplicated